=== PATIENT | male | born 1960 | race Caucasian/White ===

== ENCOUNTER 2017-11-24 14:53 | Outpatient (CLI) | payer OTHER ==
[2017-11-24 16:02] LABS: INR 4.2 (0.8-1.2); PT - PROTHROMBIN TIME 44.8 secs (9.9-12.6)
== END 2017-11-24 14:54 | disposition home or self-care (01) ==
LOC: LAB 14:53
PROVIDERS: ATTEND Pharmacist
DX: D68.59 Other primary thrombophilia (principal)
CPT/HCPCS: 36415; 85610

== ENCOUNTER 2017-12-12 09:17 | Outpatient (CLI) | payer OTHER ==
[2017-12-12 09:43] LABS: PT - PROTHROMBIN TIME 32.3 secs (9.9-12.6)
== END 2017-12-12 09:18 | disposition home or self-care (01) ==
LOC: LAB 09:17
PROVIDERS: ATTEND Pharmacist
DX: D68.59 Other primary thrombophilia (principal)
CPT/HCPCS: 36415; 85610

== ENCOUNTER 2017-12-25 15:39 | Outpatient (CLI) | payer OTHER ==
[2017-12-25 15:59] LABS: INR 3.3 (0.8-1.2); PT - PROTHROMBIN TIME 35.1 secs (9.9-12.6)
== END 2017-12-25 15:40 | disposition home or self-care (01) ==
LOC: LAB 15:39
PROVIDERS: ATTEND Pharmacist
DX: D68.59 Other primary thrombophilia (principal)
CPT/HCPCS: 36415; 85610

== ENCOUNTER 2018-01-19 08:59 | Outpatient (CLI) | payer OTHER ==
[2018-01-19 09:30] LABS: INR 1.7 (0.8-1.2); PT - PROTHROMBIN TIME 18.6 secs (9.9-12.6)
== END 2018-01-19 09:00 | disposition home or self-care (01) ==
LOC: LAB 08:59
PROVIDERS: ATTEND Pharmacist
DX: D68.59 Other primary thrombophilia (principal)
CPT/HCPCS: 36415; 85610

== ENCOUNTER 2018-02-02 09:42 | Outpatient (CLI) | payer OTHER ==
[2018-02-02 10:28] LABS: INR 2.9 (0.8-1.2); PT - PROTHROMBIN TIME 31.4 secs (9.9-12.6)
== END 2018-02-02 09:43 | disposition home or self-care (01) ==
LOC: LAB 09:42
PROVIDERS: ATTEND Pharmacist
DX: D68.59 Other primary thrombophilia (principal)
CPT/HCPCS: 36415; 85610

== ENCOUNTER 2018-03-05 12:40 | Outpatient (CLI) | payer OTHER ==
[2018-03-05 17:43] LABS: INR 3.8 (0.8-1.2); PT - PROTHROMBIN TIME 40.6 secs (9.9-12.6)
== END 2018-03-05 23:59 | disposition home or self-care (01) ==
LOC: LAB.R 12:40
PROVIDERS: ATTEND Orthopaedic Surgery
DX: Z79.01 Long term (current) use of anticoagulants (principal)
CPT/HCPCS: 85610

== ENCOUNTER 2018-03-17 14:12 | Outpatient (CLI) | payer OTHER ==
[2018-03-17 14:31] LABS: INR 2.2 (0.8-1.2); PT - PROTHROMBIN TIME 23.9 secs (9.9-12.6)
== END 2018-03-17 14:13 | disposition home or self-care (01) ==
LOC: LAB 14:12
PROVIDERS: ATTEND Pharmacist
DX: D68.59 Other primary thrombophilia (principal)
CPT/HCPCS: 36415; 85610

== ENCOUNTER 2018-03-24 11:04 | Outpatient (CLI) | payer OTHER ==
[2018-03-24 11:46] LABS: INR 1.9 (0.8-1.2); PT - PROTHROMBIN TIME 20.9 secs (9.9-12.6)
== END 2018-03-24 11:05 | disposition home or self-care (01) ==
LOC: LAB 11:04
PROVIDERS: ATTEND Pharmacist
DX: D68.59 Other primary thrombophilia (principal)
CPT/HCPCS: 36415; 85610

== ENCOUNTER 2019-01-25 06:48 | Outpatient (CLI) | payer OTHER ==
--- NOTE | 2019-01-25 13:31 | MRI Report ---
Reason: CERVICALGIA Procedure Date: 01/25/2019 Accession Number: [id number] / [id number] Procedure: MRI - Cervical Spine W/O CPT Code: FULL RESULT: EXAM: MRI CERVICAL SPINE WITHOUT CONTRAST EXAM DATE: 01/25/2019 07:49 AM. CLINICAL HISTORY: Worsening mid scapular area pain. Bilateral upper extremity radiculopathy. COMPARISONS: None. TECHNIQUE: Multiplanar, multisequence T1-weighted and fluid-sensitive sequences of the cervical spine without contrast. Other: None. FINDINGS: Neurologic Structures: The visualized posterior fossa structures are unremarkable. No signal abnormality in the visualized spinal cord. Alignment: Grade 1 retrolisthesis at C3-C4 by approximately 3 mm, grade 1 anterolisthesis at C4-C5 by approximately 2 mm, grade 1 retrolisthesis at C5-C6 by approximately 4 mm, grade 1 anterolisthesis at C7-T1 by approximately 2 mm. Bone Marrow: No acute fracture or bone lesions. Osteophytosis at multiple levels. Interspace Levels/Facets: The craniocervical junction is unremarkable. 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 C2-C3: Partial ossification of the disk. Partial bony fusion between the C2 and C3 vertebral bodies. Ankylosis at the left facet joint. Mild to moderate right facet arthropathy. Mild right foraminal stenosis. C3-C4: Degenerative endplate changes. Mild disk space narrowing. Small disk bulge/osteophyte complex. Bilateral uncovertebral joint osteophytes. Mild to moderate facet arthropathy. Mild to moderate canal stenosis and borderline mild cord impingement. No cord edema or myelomalacia. Severe foraminal stenoses. C4-C5: Small disk bulge osteophyte complex. Bilateral uncovertebral joint osteophytes. Severe left and mild right facet arthropathy. Mild canal stenosis. Severe foraminal stenoses. C5-C6: Moderate to severe disk space narrowing. Small disk bulge osteophyte complex and bilateral uncovertebral joint osteophytes. Mild to moderate canal stenosis and mild cord impingement. No cord edema or myelomalacia. Severe foraminal stenoses. C6-C7: Degenerative endplate changes. Moderate disk space narrowing. Small disk bulge/osteophyte complex and bilateral uncovertebral joint osteophytes. Mild to moderate left and mild right facet arthropathy. Mild canal stenosis. Moderate left and mild to moderate right foraminal stenoses. C7-T1: Moderate to severe facet arthropathy. Moderate to severe foraminal stenoses. Musculature: Normal. No edema or fatty atrophy. Other: The paravertebral and prevertebral soft tissues are normal. IMPRESSION: 1. Multilevel degenerative disk changes, osteophytosis, and facet arthropathy. There are varying degrees of canal and foraminal stenoses. Some of the more significant levels are at C3-C4, C4-C5, C5-C6. Please see above for level by level details. 2. Small disk bulge/osteophyte complex at C3-C4. Mild to moderate canal stenosis and borderline mild cord impingement. Severe foraminal stenoses. 3. Small disk bulge/osteophyte complex at C4-C5. Mild canal and severe foraminal stenoses. 4. Small disk bulge/osteophyte complex at C5-C6. Mild to moderate canal stenosis and mild cord impingement. Severe foraminal stenoses. 5. Grade 1 retrolisthesis at C3-C4 and C5-C6. Grade 1 anterolisthesis at C4-C5 and C7-T1. RADIA
== END 2019-01-25 06:49 | disposition home or self-care (01) ==
LOC: DI 06:48
PROVIDERS: ATTEND Family Medicine
DX: M47.9 Spondylosis, unspecified (principal); M50.31 Other cervical disc degeneration, high cervical region; M48.02 Spinal stenosis, cervical region; M43.12 Spondylolisthesis, cervical region
CPT/HCPCS: 72141

== ENCOUNTER 2019-03-12 07:08 | Outpatient (CLI) | payer OTHER ==
--- NOTE | 2019-03-12 13:10 | MRI Report ---
Reason: DORSALGIA,UNSPECIFIED Procedure Date: 03/12/2019 Accession Number: [id number] / [id number] Procedure: MRI - Lumbar Spine W/O CPT Code: FULL RESULT: EXAM: MRI LUMBAR SPINE WITHOUT CONTRAST EXAM DATE: 03/12/2019 07:53 AM. CLINICAL HISTORY: Dorsalgia, unspecified. COMPARISON: MRI cervical spine 01/25/2019. TECHNIQUE: Multiplanar, multisequence T1-weighted and fluid-sensitive sequences of the lumbar spine from T12 to S1 without contrast. Other: None. FINDINGS: No abnormal signal seen in the conus medullaris. No suspicious marrow replacement is present in the lumbar vertebral bodies. Minimal grade 1 retrolisthesis of L5 relative to S1 is present. Anterior disk protrusion and osteophyte formation are seen at scattered levels, greatest at T10-T11, L1-L2 and L2-L3: Unremarkable disk spaces. L3-L4: There is a minimal shallow left proximal foraminal protrusion with a minimal far lateral component. No stenosis. L4-L5: Minimal posterior disk protrusion is seen. There is a shallow foraminal and far lateral component on the left with some associated foraminal osteophyte formation noted. No central canal or foraminal stenosis is identified. Superior lateral recess narrowing is seen bilaterally, greater on the left relative to the right. L5-S1: A tiny posterior annular fissure is present. There is a minimal shallow right foraminal protrusion. No central canal or foraminal stenosis is present. Facet/ligamentum flavum hypertrophy is seen throughout the lumbar spine. This is mild to moderate in severity. IMPRESSION: 1. Degenerative disk disease is seen from L3 through S1 without central canal or foraminal stenosis. 2. Superior lateral recess narrowing is seen bilaterally at L4-L5, greater on the left relative to the right. Comment: The following findings are so common in adults without low back pain that while we report their presence, they must be interpreted with caution and in the context of the clinical situation. (Reference Felicitavik et al, Spine 2001) Prevalence of findings in patients without low back pain: Disk degeneration (any evidence): 92% Disk desiccation/T2 signal loss: 83% Disk height loss: 56% Disk bulge: 64% Disk protrusion: 32% Annular tear/high intensity zone: 38% RADIA
== END 2019-03-12 07:09 | disposition home or self-care (01) ==
LOC: DI 07:08
PROVIDERS: ATTEND Family Medicine
DX: M51.36 Other intervertebral disc degeneration, lumbar region (principal); M51.37 Other intervertebral disc degeneration, lumbosacral region; M51.26 Other intervertebral disc displacement, lumbar region; M47.816 Spondylosis without myelopathy or radiculopathy, lumbar region; M51.24 Other intervertebral disc displacement, thoracic region; M43.17 Spondylolisthesis, lumbosacral region
CPT/HCPCS: 72148

== ENCOUNTER 2020-05-15 08:10 | Outpatient (CLI) | payer OTHER | END 2020-05-15 23:59 | disposition home or self-care (01) | LOC: LAB.R 08:10 | PROVIDERS: ATTEND Podiatrist | DX: L03.032 Cellulitis of left toe (principal) | CPT/HCPCS: 87070; 87077; 87181; 87205 ==

== ENCOUNTER 2020-06-07 08:00 | Outpatient (CLI) | payer OTHER | END 2020-06-07 23:59 | disposition home or self-care (01) | LOC: LAB.R 08:00 | PROVIDERS: ATTEND Podiatrist | DX: L03.032 Cellulitis of left toe (principal) | CPT/HCPCS: 87070; 87077; 87181; 87205 ==